=== PATIENT | female | born 1975 | race Caucasian/White ===

== ENCOUNTER 2019-04-20 14:27 | Emergency (ER) | payer OTHER ==
[~2019-04-20] VITALS: Ht 180.3 cm; Wt 101.7 kg
[~2019-04-20 14:27] MED LIST: BEN25 PO; CEPH-443 PO; MUPI22OI2 TOP
[2019-04-20 14:38] VITALS: BP 131/61; PULSE 91; RESP 18; Ht 180.3 cm; Wt 101.7 kg
--- NOTE | 2019-04-20 15:49 | ERD ---
ER Documentation Chief Complaint Chief Complaint urine problems x2 days, PMD states its cellutilis HPI 44-year-old female presents with some itchy burning lesions on her bilateral ankles for the last week. She also has a few lesions on her upper extremities. She believes she has cellulitis. She was told by her primary doctor in [place] that she has cellulitis. Is uncertain why she was not prescribed medications. She denies any fevers, vomiting or abdominal pain. She has no additional complaints of UTI. She has a history of UTIs with no abdominal pain. She is requesting antibiotics for treatment of her lower extremity symptoms as well as her urine symptoms. ROS All systems reviewed and are negative except as per history of present illness. Medications Home Meds Active Scripts Mupirocin* (Bactroban*) 2% -22 Gram Oint...g., 1 APPLIC TOP TID for 7 Days, #1 TUB SITE OF APPLICATION: Prov:MOISES SEARS MD 04/20/19 Cephalexin* (Keflex*) 500 Mg Capsule, 500 MG PO QID for 7 Days, CAP Prov:MOISES SEARS MD 04/20/19 Diphenhydramine Hcl* (Benadryl*) 25 Mg Cap, 25 MG PO Q6, #15 CAP Prov:MOISES SEARS MD 04/20/19 Allergies Allergies: Coded Allergies: Penicillins (Unverified Allergy, Unknown, 04/20/19) Sulfa (Sulfonamide Antibiotics) (Unverified Allergy, Unknown, 04/20/19) acetaminophen (Unverified Allergy, Unknown, 04/20/19) codeine (Unverified Allergy, Unknown, 04/20/19) hydrocodone (Unverified Allergy, Unknown, 04/20/19) hydromorphone (Unverified Allergy, Unknown, 04/20/19) ibuprofen (Unverified Allergy, Unknown, 04/20/19) ketorolac (Unverified Allergy, Unknown, 04/20/19) morphine (Unverified Allergy, Unknown, 04/20/19) PMhx/Soc Hx Cardiac Disorders: Yes (hypertension; cardiac issues) Hx Alcohol Use: Yes Hx Substance Use: No Hx Tobacco Use: No Smoking Status: Former smoker FmHx Family History: coronary disease; No diabetes, No other Physical Exam Vitals Vital Signs Date Temp Pulse Resp B/P (MAP) Pulse Ox O2 O2 Flow FiO2 Time Delivery Rate 04/20/19 98.2 91 18 131/61 98 14:38 (84) Physical Exam Const: No acute distress Head: Atraumatic Eyes: Normal Conjunctiva ENT: Normal External Ears, Nose and Mouth. Neck: Full range of motion. No meningismus. Resp: Clear to auscultation bilaterally Cardio: Regular rate and rhythm, no murmurs Abd: Soft, non tender, non distended. Normal bowel sounds Skin: No petechiae or rashes Back: No midline or flank tenderness Ext: No cyanosis, or edema. Excoriated macular papular lesions around the bilateral ankles. Few scattered lesions on the upper extremities. No induration, streaking, warmth. Few areas of excoriated lesions without weeping or bleeding. Neur: Awake and alert Psych: Normal Mood and Affect Results 24 hrs Current Medications Medications Dose Sig/Karen Start Time Status Last (Trade) Ordered Route PRN Stop Time Admin Dose Reason Admin Cephalexin 500 mg ONCE ONCE 04/20/19 (Keflex) PO 16:00 04/20/19 16:01 25 mg ONCE ONCE 04/20/19 Diphenhydrami PO 16:00 04/20/19 ne HCl 16:01 (Benadryl) Procedures/MDM She presents with some nonspecific excoriated lesions on her bilateral lower extremities and a few in her upper extremities. Clinically it appears to be local reactions to insect bites. Patient is insistent she has cellulitis and wants to be treated for this. She will be treated empirically and prophylactically for possible minor secondary infection with Keflex, Bactroban, Benadryl for itching. Keflex should cover her urine symptoms as well for her presumed UTI. She has no signs of SIRS criteria, abdominal pain, chest pain, shortness of breath, additional concerning symptoms. She will be discharged home with Benadryl, Keflex, Bactroban, recommendations for further observation of her environment for possible insect bites, return precautions for worsening redness, fevers, new worsening symptoms. The patient was stable with no new complaints during the ER course. Clinically, there is no current evidence to suggest meningitis, sepsis, acute abdomen, pneumonia, stroke, acute coronary syndrome, pulmonary embolism, aortic dissection or any other emergent condition appearing to require further evaluation or hospitalization. Patient counseled regarding my diagnostic impression and care plan. Prior to discharge all questions answered. Pt agrees with treatment plan and understands strict return precautions. Pt is instructed to follow up with primary care provider within 24- 48 hours. Precautionary instructions provided including instructions to return to the ER if not improving or for any worsening or changing symptoms or concerns. Disclaimer: Inadvertent spelling and grammatical errors are likely due to EHR/dictation software use and do not reflect on the overall quality of patient care. Also, please note that the electronic time recorded on this note does not necessarily reflect the actual time of the patient encounter. Departure Diagnosis: Primary Impression: Cellulitis Site of cellulitis: extremity Site of cellulitis of extremity: lower extremity Laterality: unspecified laterality Qualified Codes: L03.119 - Cellulitis of unspecified part of limb Additional Impressions: Cystitis Insect bite Encounter type: initial encounter Site of insect bite: unspecified site Qualified Codes: W57.XXXA - Bitten or stung by nonvenomous insect and other nonvenomous arthropods, initial encounter Condition: Stable Patient Instructions: Insect Sting/Bite, Infected Additional Instructions: Recheck for fever, worsening redness, vomiting, new or worsening symptoms. Suspect may be insect bites as well. Observe household for possible source of allergic reaction. MOISES SEARS MD Apr 20, 2019 15:49
[2019-04-20] MEDS ORDERED: DIPHENHYDRAMINE 25 MG CAP PO ONE (16:00)
[2019-04-20] MEDS ORDERED: CEPHALEXIN 500 MG CAP PO ONE (16:00)
== END 2019-04-20 16:20 | disposition home or self-care (01) ==
LOC: FTE 14:27
DX: S90.561A Insect bite (nonvenomous), right ankle, initial encounter (principal); L03.116 Cellulitis of left lower limb; L03.115 Cellulitis of right lower limb; N30.90 Cystitis, unspecified without hematuria; S90.562A Insect bite (nonvenomous), left ankle, initial encounter; I10 Essential (primary) hypertension; W57.XXXA Bitten or stung by nonvenomous insect and other nonvenomous arthropods, initial encounter; Y92.9 Unspecified place or not applicable; Z87.891 Personal history of nicotine dependence
CPT/HCPCS: Z7502; Z7610; 99283